=== PATIENT | male | born 1965 | race African-American/Black ===

== ENCOUNTER 2022-01-07 18:36 | Emergency (ER) | payer OTHER ==
[2022-01-07] MEDS ORDERED: TETRACAINE HCL 0.5% 4ML OPTH ONE (19:38)
[2022-01-07] MEDS ORDERED: FLUORESCEIN SODIUM 1 MG/WRAP ONE (19:39)
[2022-01-07 20:14] LABS: Absolute Lymphocytes (CBC) 1.6 K/uL (0.7-4.9); Hematocrit 48.2 % (39.6-49.0); Lymphocytes % 30.8 % (15.3-44.8); MPV 8.3 fL (7.6-11.3); RBC Red Blood Cell Count 5.98 M/uL (4.33-5.43)
[2022-01-07 20:41] LABS: Albumin 3.8 g/dL (3.4-5.0); Bilirubin Direct 0.2 mg/dL (0-0.2); Bilirubin Total 0.7 mg/dL (0.2-1.0); Potassium 3.6 mmol/L (3.5-5.1); Protein, Total 8.6 g/dL (6.4-8.2)
--- NOTE | 2022-01-07 21:07 | RAD REPORT ---
EXAM DESCRIPTION: CT - Facial Bones W Con Mpr - 01/07/2022 8:53 pm CLINICAL HISTORY: Right eye swelling, drainage, pain and redness COMPARISON: None. TECHNIQUE: Axial 2 millimeter thick images of the facial bones were obtained following nonionic IV c ontrast administration with sagittal and coronal reconstruction imaging. All CT scans are performed using dose optimization technique as appropriate and may include automated exposure control or mA/KV adjustment according to patient size. FINDINGS: Right globe, optic nerves and extraocular muscles have a normal appearance. Postseptal orb ital fat normal in appearance as well. The preseptal soft tissues do appear mildly edematous relative to the left. Lacrimal gland on the right has a normal appearance. No abnormal air collection in the soft tissues. The left orbital structures are unremarkable. Mastoid air cells and paranasal sinuses are clear of ac paul findings. No bone abnormality seen. A few small nonspecific cervical lymph nodes are present. IMPRESSION: Mild edema changes are seen in the right periorbital soft tissues. No post septal abnormality. Right globe is unremarkable.
[2022-01-07] MEDS ORDERED: AMPICILLIN/SULBACTAM 3GM/VIAL ONE (21:58)
[2022-01-07] MEDS ORDERED: NA CHLORIDE 0.9% 100 ML ONE (21:58)
--- NOTE | 2022-01-07 22:09 | ER ---
Nurse's Notes [facility] Name: Cesario Espinoza Age: 56 yrs Sex: Male : 1965 Arrival Date: 01/07/2022 Time: 18:37 Bed 14 Private MD: Diagnosis: Preseptal Cellulitis, Right eye;Unspecified keratoconjunctivitis, right eye;Corneal Abrasion, possible ulceration, right Presentation: 01/07 18:51 Chief complaint: Patient states: Right eye swelling, drainage, pain and redness that ld1 started 5 days ago. Seen at the clinic in custodial and received eye gtts. Coronavirus screen: Client denies travel out of the [place] in the last 14 days. Ebola Screen: Patient denies travel to an Ebola-affected area in the 21 days before illness onset. Mechanism of Injury: No Mechanism of Injury. The patient denies any loss of vision. Initial Sepsis Screen: Does the patient meet any 2 criteria? No. Patient's initial sepsis screen is negative. Does the patient have a suspected source of infection? No. Patient's initial sepsis screen is negative. Risk Assessment: Do you want to hurt yourself or someone else? Patient reports no desire to harm self or others. Onset of symptoms is unknown. 18:51 Method Of Arrival: Law Enforcement: [place] [employer] ld1 18:51 Acuity: FLORENCIO 3 ld1 Triage Assessment: 18:52 General: Appears in no apparent distress. Behavior is calm, cooperative. Pain: ld1 Complains of pain in right eye. EENT: Eyes are tearing on outer aspect of conjuctiva of right eye, inner aspect of conjuctiva of right eye and right inner canthus Sclera/Cornea are reddened in outer aspect of conjuctiva of right eye, iris of right eye and inner aspect of conjuctiva of right eye. Neuro: Level of Consciousness is awake, alert, obeys commands, Oriented to person, place, time, situation, Moves all extremities. Gait is steady, Speech is normal. Respiratory: Airway is patent Respiratory effort is even, unlabored, Respiratory pattern is regular, symmetrical. GI: No signs and/or symptoms were reported involving the gastrointestinal system. : No signs and/or symptoms were reported regarding the genitourinary system. Musculoskeletal: No signs and/or symptoms reported regarding the musculoskeletal system. Historical: - Allergies: 18:52 No Known Allergies; ld1 - PMHx: 18:52 Hypertensive disorder; ld1 - Immunization history:: Adult Immunizations. - Social history:: Smoking status: Patient denies any tobacco usage or history of. Screenin:54 Abuse screen: Denies threats or abuse. Denies injuries from another. Nutritional ld1 screening: No deficits noted. Tuberculosis screening: No symptoms or risk factors identified. Fall Risk None identified. Assessment: 20:11 General: Appears in no apparent distress. Behavior is appropriate for age, inmate with [facility] security intelligence analyst at bedside . Pain: Denies pain. Neuro: Level of Consciousness is awake, alert, Oriented to person, place, time, situation. Cardiovascular: Denies chest pain, Heart tones S1 S2 Capillary refill < 3 seconds JVD is absent Patient's skin is warm and dry. Respiratory: Airway is patent Trachea midline Respiratory effort is even, unlabored. EENT: Eyes with exudate noted from outer aspect of conjuctiva of right eye, iris of right eye, inner aspect of conjuctiva of right eye and right inner canthus Sclera/Cornea are reddened in outer aspect of conjuctiva of right eye and inner aspect of conjuctiva of right eye. 21:58 Reassessment: Patient appears in no apparent distress at this time. No changes from [facility] previously documented assessment. Patient is alert, oriented x 3, equal unlabored respirations, skin warm/dry/pink. 22:43 Reassessment: Report called and given to Jose WILCOX. [facility] 01/08 00:04 Reassessment: Patient appears in no apparent distress at this time. No changes from [facility] previously documented assessment. Vital Signs: 01/07 18:51 BP 147 / 93; Pulse 75; Resp 18; Temp 98.3; Pulse Ox 96% ; Weight 82.55 kg; Height 5 ft. ld1 9 in. (175.26 cm); Pain 2/10; 21:57 BP 153 / 90; Pulse 65; Resp 16; Temp 98.9(O); Pulse Ox 96% on R/A; ke1 18:51 Body Mass Index 26.88 (82.55 kg, 175.26 cm) 1 ED Course: 18:37 Patient arrived in ED. as 18:52 Triage completed. ld1 18:54 Arm band placed on. ld1 18:54 Patient has correct armband on for positive identification. Bed in low position. Call ld1 light in reach. Side rails up X 1. Security at bedside. 19:05 Rico Rodriguez MD is Attending Physician. [facility] 19:30 Marilia See, RN is Primary Nurse. [facility] 20:01 Inserted saline lock: 22 gauge in left forearm, using aseptic technique. [facility] 20:13 Assist provider with eye exam of right eye. using fluorescein stain, Performed by [facility] Rico Rodriguez MD Patient tolerated well. 20:55 CT Facial Bones W/ Con \T\ Mpr In Process Unspecified. EDAR 01/08 00:59 IV discontinued. [facility] Administered Medications: 01/07 19:45 Drug: Tetracaine Drops 0.5 % 1 drops {Note: by md.} Route: Ophthalmic; Site: right eye; [facility] 21:58 Drug: Unasyn (ampicillin-sulbactam) 3 grams Route: IVPB; Infused Over: 30 mins; Site: [facility] left forearm; 22:44 Follow up: Response: No adverse reaction ke Medication: 01/08 01:00 VIS not applicable for this client. [facility] Outcome: 01/07 22:08 ER care complete, transfer ordered by . [facility] 01/08 00:59 Transferred by ground EMS [facility] Condition: stable Instructed on the need for transfer. 01:00 Patient left the ED. [facility] Signatures: Dispatcher [employer] EDAR Carmen Knutson Maurice, MD MD [facility] Vy Riggs RN RN [facility] Marilia See RN RN [facility]
--- NOTE | 2022-01-07 22:09 | EDPHYS ---
Physician Documentation [facility] Name: Cesario Espinoza Age: 56 yrs Sex: Male : 1965 Arrival Date: 01/07/2022 Time: 18:37 Bed 14 Private MD: ED Physician Rico Rodriguez HPI: 01/07 19:54 This 56 yrs old Black Male presents to ER via Law Enforcement with complaints of mh7 Redness of Eye, Eye Pain. 19:54 The patient is experiencing blurred vision, matting or discharge, pain, redness, mh7 tearing, The patient sustained None. to the right eye. Onset: The symptoms/episode began/occurred 5 day(s) ago. Duration: the symptoms are continuous. Aggravated by nothing. Alleviated by nothing. Associated signs and symptoms: Pertinent negatives: chills, dizziness, ear ache, fever, headache, runny nose. Patient wears glasses. Severity of symptoms: At their worst the symptoms were moderate yesterday, in the emergency department the symptoms are unchanged. Sent from skilled nursing with right eye redness, pain, swelling for 5 days that is worsening. He was started on tobramycin eye drops 2 days ago. Denies any trauma, fever, nausea, vomiting.. Historical: - Allergies: 18:52 No Known Allergies; ld1 - PMHx: 18:52 Hypertensive disorder; ld1 - Immunization history:: Adult Immunizations. - Social history:: Smoking status: Patient denies any tobacco usage or history of. ROS: 19:54 Constitutional: Negative for fever, chills, and weight loss, ENT: Negative for injury, mh7 pain, and discharge, Neck: Negative for injury, pain, and swelling, Cardiovascular: Negative for chest pain, palpitations, and edema, Respiratory: Negative for shortness of breath, cough, wheezing, and pleuritic chest pain, Abdomen/GI: Negative for abdominal pain, nausea, vomiting, diarrhea, and constipation, Back: Negative for injury and pain, : Negative for injury, bleeding, discharge, and swelling, MS/Extremity: Negative for injury and deformity, Skin: Negative for injury, rash, and discoloration, Neuro: Negative for headache, weakness, numbness, tingling, and seizure, Psych: Negative for depression, anxiety, suicide ideation, homicidal ideation, and hallucinations, Allergy/Immunology: Negative for hives, rash, and allergies, Endocrine: Negative for neck swelling, polydipsia, polyuria, polyphagia, and marked weight changes, Hematologic/Lymphatic: Negative for swollen nodes, abnormal bleeding, and unusual bruising. Exam: 19:54 Constitutional: This is a well developed, well nourished patient who is awake, alert, mh7 and in no acute distress. Head/Face: Normocephalic, atraumatic. ENT: Nares patent. No nasal discharge, no septal abnormalities noted. Tympanic membranes are normal and external auditory canals are clear. Oropharynx with no redness, swelling, or masses, exudates, or evidence of obstruction, uvula midline. Mucous membranes moist. Neck: Trachea midline, no thyromegaly or masses palpated, and no cervical lymphadenopathy. Supple, full range of motion without nuchal rigidity, or vertebral point tenderness. No Meningismus. Chest/axilla: Normal chest wall appearance and motion. Nontender with no deformity. No lesions are appreciated. Cardiovascular: Regular rate and rhythm with a normal S1 and S2. No gallops, murmurs, or rubs. Normal PMI, no JVD. No pulse deficits. Respiratory: Lungs have equal breath sounds bilaterally, clear to auscultation and percussion. No rales, rhonchi or wheezes noted. No increased work of breathing, no retractions or nasal flaring. Abdomen/GI: Soft, non-tender, with normal bowel sounds. No distension or tympany. No guarding or rebound. No evidence of tenderness throughout. Back: No spinal tenderness. No costovertebral tenderness. Full range of motion. Skin: Warm, dry with normal turgor. Normal color with no rashes, no lesions, and no evidence of cellulitis. MS/ Extremity: Pulses equal, no cyanosis. Neurovascular intact. Full, normal range of motion. Neuro: Awake and alert, GCS 15, oriented to person, place, time, and situation. Cranial nerves II-XII grossly intact. Motor strength 5/5 in all extremities. Sensory grossly intact. Cerebellar exam normal. Normal gait. Psych: Awake, alert, with orientation to person, place and time. Behavior, mood, and affect are within normal limits. 19:54 Eyes: Periorbital structures: cellulitis, that is mild, on the right supraorbital ridge, right upper eyelid and right lower eyelid, erythema, that is mild, on the right supraorbital ridge, medial aspect of conjunctiva of right eye, lateral aspect of conjunctiva of right eye and right lower eyelid, swelling, that is mild, on the right supraorbital ridge, right upper eyelid and right lower eyelid, Pupils: constricted, bilaterally, Extraocular movements: intact throughout, Conjunctiva: injected, in the right eye, Corneas: abrasion, that is moderate sized, at 6 o'clock, 1 o' clock, a fluorescein strip employed to appreciate the findings, Sclera: no appreciated abnormality, Lids and lashes: no evidence of trauma, funduscopic exam reveals not able to visualize. Visual eisenberg: are intact, Nystagmus: is not appreciated, Examination of the other eye reveals no obvious gross abnormality, Intraocular pressure: right eye = 23mmHg, left eye = 18mmHg, no slit lamp available. Vital Signs: 18:51 BP 147 / 93; Pulse 75; Resp 18; Temp 98.3; Pulse Ox 96% ; Weight 82.55 kg; Height 5 ft. ld1 9 in. (175.26 cm); Pain 2/10; 21:57 BP 153 / 90; Pulse 65; Resp 16; Temp 98.9(O); Pulse Ox 96% on R/A; ke1 18:51 Body Mass Index 26.88 (82.55 kg, 175.26 cm) ld1 MDM: 22:05 Differential diagnosis: Corneal abrasion of right eye. Corneal ulcer of right eye. mh7 Foreign body in right eye. Acute iritis of right eye. Acute glaucoma in right eye. Infectious conjunctivitis in right eye. Ultraviolet keratitis in right eye. Data reviewed: vital signs, nurses notes, lab test result(s), CBC, electrolytes, radiologic studies, CT scan. Data interpreted: Pulse oximetry: on room air is 96 %. Interpretation: normal. Counseling: I had a detailed discussion with the patient and/or guardian regarding: the historical points, exam findings, and any diagnostic results supporting the discharge/admit diagnosis, lab results, radiology results, the need to transfer to another facility, [facility] does not immediately have the required specialist. Response to treatment: the patient's symptoms have mildly improved after treatment. 22:08 Patient medically screened. [facility] 01/07 19:19 Order name: CBC with Diff; Complete Time: 21:12 [facility] 01/07 19:19 Order name: Basic Metabolic Panel; Complete Time: 21:12 [facility] 01/07 19:19 Order name: LFT's; Complete Time: 21:12 [facility] 01/07 19:36 Order name: SARS-COV-2 RT PCR (Document "Date of Onset" if Symptomatic); Complete Time: oe 21:12 01/07 20:15 Order name: Glucose, Ancillary Testing; Complete Time: 21:12 [facility] 01/07 21:19 Order name: Blood Culture Adult (2) [facility] 01/07 19:19 Order name: Accucheck; Complete Time: 20:10 [facility] 01/07 19:19 Order name: Eye Tray; Complete Time: 20:00 [facility] 01/07 19:19 Order name: Fluoresene Opth strip; Complete Time: 20:00 [facility] 01/07 19:19 Order name: Visual Acuity; Complete Time: 20:00 [facility] 01/07 19:20 Order name: Saline Lock; Complete Time: 20:00 [facility] 01/07 19:54 Order name: CT Facial Bones W/ Con \\T\\ Mpr; Complete Time: 21:12 [facility] 01/07 19:20 Order name: Accucheck Blood Glucose; Complete Time: 20:10 7 Administered Medications: 19:45 Drug: Tetracaine Drops 0.5 % 1 drops {Note: by .} Route: Ophthalmic; Site: right eye; ke1 21:58 Drug: Unasyn (ampicillin-sulbactam) 3 grams Route: IVPB; Infused Over: 30 mins; Site: [facility] left forearm; 22:44 Follow up: Response: No adverse reaction ke1 Disposition Summary: 01/07/22 22:08 Transfer Ordered Transfer Location: [place] [id number] Reason: Higher level of care [facility] Condition: Stable [facility] Problem: new [facility] Symptoms: have improved mh7 Accepting Physician: Dr. Burton(01/08/22 01:00) ke1 Diagnosis - Preseptal Cellulitis, Right eye mh7 - Unspecified keratoconjunctivitis, right eye mh7 - Corneal Abrasion, possible ulceration, right 7 Forms: - Medication Reconciliation Form 7 - SBAR form 7 Signatures: Dispatcher [employer] Rico Ayers MD MD mh7 Vy Riggs RN RN ld1 Marilia See RN RN ke1 Corrections: (The following items were deleted from the chart) 22: 22:08 Dr. Burton mh7 mh7 01/08 01:00 01/07 22:09 Dr. Burton 7 ke1
[2022-01-08 01:08] VITALS: O2SAT 96
[2022-01-08 01:09] VITALS: BP 153/90; TEMP 98.9
== END 2022-01-08 01:00 | disposition short-term general hospital (02) ==
LOC: ER 18:36
DX: L03.213 Periorbital cellulitis (principal); H16.201 Unspecified keratoconjunctivitis, right eye; S05.01XA Injury of conjunctiva and corneal abrasion without foreign body, right eye, initial encounter; I10 Essential (primary) hypertension; Z20.822 Contact with and (suspected) exposure to COVID-19
CPT/HCPCS: 87040 ×2; 85025; 80048; 36415; 82947; 80076; 70487; 76377; 96374; 99285; U0003; Q9967; J0295